=== PATIENT | male | born 1955 | race Caucasian/White ===

== ENCOUNTER 2017-11-23 10:54 | Emergency (ER) | payer BC ==
[2017-11-23 11:36] LABS: ABSOLUTE BASOPHILS # (AUTO) 0.1 10^3/uL (0.0-0.2); ABSOLUTE EOSINOPHILS # (AUTO) 0.4 10^3/uL (0.0-0.6); ABSOLUTE LYMPHOCYTES (AUTO) 1.7 10^3/uL (0.5-4.7); ABSOLUTE MONOCYTES (AUTO) 0.8 10^3/uL (0.1-1.4); ABSOLUTE NEUT (AUTO) 2.9 10^3/uL (1.7-8.2); BASOPHILS % (AUTO) 0.9 % (0-2); EOSINOPHILS % (AUTO) 6.6 % (0-6); HEMATOCRIT 38.8 % (37.9-51.0); HEMOGLOBIN 13.6 g/dL (13.5-17.0); LYMPHOCYTES % (AUTO) 29.4 % (13-45); MEAN CORPUSCULAR HEMOGLOBIN 32.8 pg (27.0-33.4); MEAN CORPUSCULAR HGB CONC 34.9 g/dL (32.0-36.0); MEAN CORPUSCULAR VOLUME 94 fl (80-97); MONOCYTES % (AUTO) 13.3 % (3-13); PLATELET COUNT 252 10^3/uL (150-450); RED BLOOD COUNT 4.13 10^6/uL (4.35-5.55); RED CELL DISTRIBUTION WIDTH 13.1 % (11.5-14.0); SEGMENTED NEUTROPHILS % (AUTO) 49.8 % (42-78); TOTAL CELLS COUNTED % (AUTO) 100 %; WHITE BLOOD COUNT 5.8 10^3/uL (4.0-10.5)
[2017-11-23 11:50] LABS: ALANINE AMINOTRANSFERASE 37 U/L (21-72); ALBUMIN 4.7 g/dL (3.5-5.0); ALKALINE PHOSPHATASE 78 U/L (38-126); ANION GAP 13 (5-19); ASPARTATE AMINO TRANSFERASE 25 U/L (17-59); BILIRUBIN,DIRECT 0.3 mg/dL (0.0-0.4); BILIRUBIN,TOTAL 0.8 mg/dL (0.2-1.3); BLOOD UREA NITROGEN 18 mg/dL (7-20); CALCIUM 10.5 mg/dL (8.4-10.2); CARBON DIOXIDE 27 mmol/L (22-30); CHLORIDE 102 mmol/L (98-107); GLUCOSE 86 mg/dL (75-110); LIPASE 114.9 U/L (23-300); POTASSIUM 4.2 mmol/L (3.6-5.0); SODIUM 141.8 mmol/L (137-145); TOTAL PROTEIN 7.7 g/dL (6.3-8.2)
--- NOTE | 2017-11-23 12:36 | ER Document Report ---
ED GI/ - General Chief Complaint: Abdominal Pain Stated Complaint: ABDOMINAL PAIN Time Seen by Provider: 11/23/17 12:36 Mode of Arrival: Ambulatory Information source: Patient Notes: 62 yo male hyperlipedemia, HTN, COPD, ex smoker, vape nicotine (constant), heavy beer avg 7 12 ounce, 4 days a week, no drugs, with pressure/bloating in stomach since friday, worse on friday, gets worse during the day, causes SOB due pressure on diaphragm. Visiting from [facility]. [facility] and passing gas last night helped. Had FU EGD last week for Barretts Esoph, Hiatel hernia, needs surgery for the HH, but Barretts Esoph better due to high omeprazole 40mg bid, zantac 300mg bid. Only take 40mg once daily. Colonoscopy 2 months ago clear. BM' s firm recently. Appendectomy, INQ hernia repair. Chronic UTI for 5 years- seen in [facility]-none now, last 3 weeks ago- tx, . urine foul smelling at that time.. Staying in [facility] until Friday. No fever or chills. No scrotal, penile or perineal pain. Symptoms now are abdominal pressure and shortness of breath. TRAVEL OUTSIDE OF THE U[place]S. IN LAST 30 DAYS: No - Related Data Allergies/Adverse Reactions: No Known Allergies Allergy (Unverified 11/23/17 10:55) Past Medical History - General Information source: Patient - Social History Smoking Status: Former Smoker Chew tobacco use (# tins/day): No Frequency of alcohol use: None Drug Abuse: None Lives with: Spouse/Significant other Family History: Reviewed & Not Pertinent Patient has suicidal ideation: No Patient has homicidal ideation: No - Past Medical History Cardiac Medical History: Reports: Hx Hypertension Pulmonary Medical History: Reports: Hx COPD Renal/ Medical History: Denies: Hx Peritoneal Dialysis GI Medical History: Reports: Hx Gastroesophageal Reflux Disease - ruff's esophagus, Hx Hiatal Hernia Past Surgical History: Reports: Hx Appendectomy, Hx Orthopedic Surgery - knee, wrist, back Review of Systems - Review of Systems Constitutional: No symptoms reported EENT: No symptoms reported Cardiovascular: No symptoms reported Respiratory: See HPI Gastrointestinal: See HPI Genitourinary: No symptoms reported Male Genitourinary: No symptoms reported Musculoskeletal: No symptoms reported Skin: No symptoms reported Hematologic/Lymphatic: No symptoms reported Neurological/Psychological: No symptoms reported Physical Exam - Vital signs Vitals: Temp Pulse Resp BP Pulse Ox 98.5 F 68 18 135/85 H 96 11/23/17 11:01 11/23/17 11:01 11/23/17 11:01 11/23/17 11:01 11/23/17 11:01 Interpretation: Normal - General General appearance: Appears well, Alert In distress: None - HEENT Head: Normocephalic, Atraumatic Eyes: Normal Conjunctiva: Normal Pupils: PERRL Pharynx: Normal Neck: Supple. No: Lymphadenopathy - Respiratory Respiratory status: No respiratory distress Chest status: Nontender Breath sounds: Normal Chest palpation: Normal - Cardiovascular Rhythm: Regular Heart sounds: Normal auscultation Murmur: No - Abdominal Inspection: Normal Distension: No distension Bowel sounds: Normal Tenderness: Nontender Organomegaly: No organomegaly - Back Back: Normal, Nontender - Extremities General upper extremity: Normal inspection, Nontender, Normal color, Normal ROM , Normal temperature General lower extremity: Normal inspection, Nontender, Normal color, Normal ROM , Normal temperature, Normal weight bearing. No: Michael's sign - Neurological Neuro grossly intact: Yes Cognition: Normal Orientation: AAOx4 [place] Coma Scale Eye Opening: Spontaneous Margot Coma Scale Verbal: Oriented Margot Coma Scale Motor: Obeys Commands [place] Coma Scale Total: 15 Speech: Normal Motor strength normal: LUE, RUE, LLE, RLE Sensory: Normal - Psychological Associated symptoms: Normal affect, Normal mood - Skin Skin Temperature: Warm Skin Moisture: Dry Skin Color: Normal Skin irregularity: negative: Rash Course - Re-evaluation Re-evalutation: 11/24/17 11:44 Feels much better after the nebulizer, AAS negative for obstuction. Will send home with bronchodilaters, suggestions for the intestinal gas. - Vital Signs Vital signs: Temp Pulse Resp BP Pulse Ox 97.5 F 69 16 128/87 H 97 11/23/17 16:06 11/23/17 16:06 11/23/17 16:06 11/23/17 16:06 11/23/17 16:06 - Laboratory Result Diagrams: 11/23/17 11:25 11/23/17 11:25 Laboratory results interpreted by me: 11/23/17 11/23/17 11/23/17 11:25 11:25 12:10 RBC 4.13 L Monocytes % 13.3 H Eosinophils % 6.6 H Calcium 10.5 H Ur Leukocyte Esterase TRACE H Discharge - Discharge Clinical Impression: Wheezing, intestinal gas, asymptomatic bacteruria COPD (chronic obstructive pulmonary disease) Qualifiers: COPD type: unspecified COPD Qualified Code(s): J44.9 - Chronic obstructive pulmonary disease, unspecified Condition: Good Disposition: HOME, SELF-CARE Instructions: Bronchitis With Bronchospasm (Wheezing) ([facility]), Chronic Obstructive Lung Disease ([facility]), Inhaled Bronchodilators ([facility]), Steroid Medication Additional Instructions: miralax will add water to your intestines which should increase peristalsis and help get the air out Beano gas x plenty of fluids use the inhalers for the wheezing steroids for 5 days total the urine culture is pending , if it shows UTI then we will call you to er if worsening symptoms while visiting to [place] Prescriptions: Albuterol Sulfate [Proair HFA Inhalation Aerosol 8.5 gm MDI] 2 puff IH Q3HP PRN #1 [email or web address] PRN Reason: Ipratropium/Albuterol Sulfate [Combivent Inhaler] 2 puff IH QID #1 [email or web address] Prednisone [Deltasone 20 mg Tablet] 40 mg PO DAILY #8 tablet
[2017-11-23 13:13] LABS: APPEARANCE,URINE CLEAR; BILIRUBIN,URINE NEGATIVE (NEGATIVE); COLOR,URINE YELLOW; GLUCOSE, URINE NEGATIVE (NEGATIVE); KETONES,URINE NEGATIVE (NEGATIVE); LEUKOCYTE ESTERASE,URINE TRACE (NEGATIVE); NITRITE,URINE NEGATIVE (NEGATIVE); PROTEIN,URINE NEGATIVE (NEGATIVE); URINE SPECIFIC GRAVITY 1.006; UROBILINOGEN,URINE NEGATIVE mg/dL (<2.0)
[2017-11-23] MEDS ORDERED: IPRATROPIUM/ALBUTEROL 0.5-2.5 MG/3 ML AMPUL NEB ONE (13:42)
--- NOTE | 2017-11-23 14:07 | RADIOLOGY REPORT (SQ) ---
EXAM DESCRIPTION: ACUTE ABDOMEN SERIES COMPLETED DATE/TIME: 11/23/2017 1:57 pm REASON FOR STUDY: distention, bloating COMPARISON: None. NUMBER OF VIEWS: Three views. TECHNIQUE: Frontal chest, supine abdomen and upright/decubitus abdomen radiographic images acquired. LIMITATIONS: None. FINDINGS: CHEST: Lungs clear of infiltrates. FREE AIR: None. No abnormal gas collections. BOWEL GAS PATTERN: Nonobstructive pattern. No dilated loops or air fluid levels. CALCIFICATIONS: No suspicious calcifications. HARDWARE: None in the abdomen. SOFT TISSUES: No gross mass or suggestion of organomegaly. BONES: No acute fracture. No worrisome bone lesions. OTHER: No other significant finding. IMPRESSION: NO RADIOGRAPHIC EVIDENCE FOR ACUTE ABDOMINAL DISEASE. TECHNICAL DOCUMENTATION: JOB ID: [id number] [employer]- All Rights Reserved
[2017-11-23] MEDS ORDERED: PREDNISONE 20 MG TABLET PO ONE (15:43)
[2017-11-23 16:07] VITALS: BP 128/87
== END 2017-11-23 16:07 | disposition home or self-care (01) ==
LOC: ER 10:54
DX: R06.2 Wheezing (principal); R14.3 Flatulence; R82.71 Bacteriuria; R10.9 Unspecified abdominal pain; J44.9 Chronic obstructive pulmonary disease, unspecified; I10 Essential (primary) hypertension
CPT/HCPCS: 94640; 99284; 36415; 87086; 83690; 85025; 87088; 80053; 81001; 87186; 74022; J7512; J7620

== ENCOUNTER 2018-07-18 04:16 | Observation (INO) | payer BC ==
[2018-07-18] MEDS ORDERED: NORMAL SALINE 1000 ML 1,000 ML IV ONE (04:22)
[2018-07-18] MEDS ORDERED: METHYLPREDNISOLONE INJ 125 MG/2 ML SDV IV ONE (04:24)
[2018-07-18] MEDS ORDERED: IPRATROPIUM/ALBUTEROL 0.5-2.5 MG/3 ML AMPUL NEB ONE ×2 (04:24→04:34)
--- NOTE | 2018-07-18 04:31 | ER Document Report ---
ED Respiratory Problem - General Mode of Arrival: Ambulatory Information source: Patient TRAVEL OUTSIDE OF THE U.S. IN LAST 30 DAYS: No <TAVO TRINIDAD - Last Filed: 07/18/18 04:49> <MANJEET BOCANEGRA - Last Filed: 07/18/18 06:08> - General Chief Complaint: Respiratory Distress Stated Complaint: SHORTNESS OF BREATH Time Seen by Provider: 07/18/18 04:21 Notes: 63-year-old male who presents to the emergency department today with complaints of 3 days of shortness of breath with an associated cough. Patient states that he was awoken from sleep tonight secondary to this shortness of breath. Patient has a history of COPD. Patient still smokes but now uses a "vape". Patient denies fevers, pain, or history of coronary artery disease. (TAVO TRINIDAD) - Related Data Allergies/Adverse Reactions: No Known Allergies Allergy (Unverified 11/23/17 10:55) Past Medical History - General Information source: Patient - Social History Smoking Status: Current Every Day Smoker Cigarette use (# per day): No - vape Frequency of alcohol use: None Drug Abuse: None Lives with: Family Family History: Reviewed & Not Pertinent - Past Medical History Cardiac Medical History: Reports: Hx Hypertension Pulmonary Medical History: Reports: Hx COPD Renal/ Medical History: Denies: Hx Peritoneal Dialysis GI Medical History: Reports: Hx Gastroesophageal Reflux Disease - ruff's esophagus, Hx Hiatal Hernia Past Surgical History: Reports: Hx Appendectomy, Hx Orthopedic Surgery - knee, wrist, back <TAVO TRINIDAD - Last Filed: 07/18/18 04:49> Review of Systems - Review of Systems Constitutional: denies: Fever EENT: No symptoms reported Cardiovascular: No symptoms reported Respiratory: See HPI, Cough, Short of breath Gastrointestinal: No symptoms reported Genitourinary: No symptoms reported Male Genitourinary: No symptoms reported Musculoskeletal: No symptoms reported Skin: No symptoms reported Hematologic/Lymphatic: No symptoms reported Neurological/Psychological: No symptoms reported -: Yes All other systems reviewed and negative <TAVO TRINIDAD - Last Filed: 07/18/18 04:49> Physical Exam - Vital signs Interpretation: Tachycardic, Hypoxic, Tachypneic - General General appearance: Alert In distress: Moderate - HEENT Head: Normocephalic, Atraumatic Eyes: Normal Pupils: PERRL - Respiratory Respiratory status: Respiratory distress Chest status: Nontender Breath sounds: Decreased air movement, Wheezing Chest palpation: Normal - Cardiovascular Rhythm: Regular Heart sounds: Normal auscultation Murmur: No - Abdominal Inspection: Normal Distension: No distension Bowel sounds: Normal Tenderness: Nontender Organomegaly: No organomegaly - Back Back: Normal, Nontender - Extremities General upper extremity: Normal inspection, Nontender, Normal color, Normal ROM , Normal temperature General lower extremity: Normal inspection, Nontender, Normal color, Normal ROM , Normal temperature, Normal weight bearing. No: Michael's sign - Neurological Neuro grossly intact: Yes Cognition: Normal Orientation: AAOx4 [place] Coma Scale Eye Opening: Spontaneous [place] Coma Scale Verbal: Oriented [place] Coma Scale Motor: Obeys Commands [place] Coma Scale Total: 15 Speech: Normal Motor strength normal: LUE, RUE, LLE, RLE Sensory: Normal - Psychological Associated symptoms: Normal affect, Normal mood - Skin Skin Temperature: Warm Skin Moisture: Dry Skin Color: Normal <MANJEET BOCANEGRA - Last Filed: 07/18/18 06:08> - Vital signs Vitals: Pulse Resp BP Pulse Ox 102 H 24 H 158/75 H 87 L 07/18/18 04:20 07/18/18 04:20 07/18/18 04:20 07/18/18 04:20 Course <TAVO TRINIDAD - Last Filed: 07/18/18 04:49> - Laboratory Result Diagrams: 07/18/18 04:55 07/18/18 04:55 - Diagnostic Test Radiology reviewed: Reports reviewed - EKG Interpretation by Ut EKG shows normal: Sinus rhythm <MANJEET BOCANEGRA - Last Filed: 07/18/18 06:08> - Re-evaluation Re-evalutation: 07/18/18 05:09 Patient respiratory status improving with BiPAP and breathing treatments. 07/18/18 06:06 Patient is a 63-year-old male with a history of COPD who has had difficulty breathing over the last 3 days. Patient came in in moderate respiratory distress. He is given nebulizer treatments, Solu-Medrol, magnesium, and placed on BiPAP. His respiratory status is improved and he is resting comfortably on BiPAP. Unfortunately, the patient is still wheezing. Given his hypoxia and acidosis on blood gas, patient will be referred for hospitalist admission. No evidence for pneumonia on x-ray. Patient is agreeable to this plan. Stable at the time of admission. (MANJEET BOCANEGRA) - Vital Signs Vital signs: Temp Pulse Resp BP Pulse Ox 102 H 20 138/84 H 96 07/18/18 04:20 07/18/18 05:01 07/18/18 05:01 07/18/18 05:01 - Laboratory Laboratory results interpreted by me: 07/18/18 07/18/18 04:55 04:55 VBG pH 7.27 L Carbon Dioxide 20 L Critical Care Note - Critical Care Note Total time excluding time spent on procedures (mins): 45 - Evaluation and management of respiratory distress, hypoxia, multiple re-evaluations, coordination of admission, counseling of patient <MANJEET BOCANEGRA - Last Filed: 07/18/18 06:08> Discharge <TAVO TRINIDAD - Last Filed: 07/18/18 04:49> - Discharge Admitting Provider: [facility] Admitted: Telemetry <MANJEET BOCANEGRA - Last Filed: 07/18/18 06:08> - Discharge Clinical Impression: COPD exacerbation Condition: Stable Disposition: ADMITTED OBSERVATION Scribe Attestation: 07/18/18 06:08 I personally performed the services described in the documentation, reviewed and edited the documentation which was dictated to the scribe in my presence, and it accurately records my words and actions. (MANJEET BOCANEGRA) Scribe Documentation - Scribe Written by Marino:: Marino Rendon, 07/18/2018 [id number] acting as scribe for :: Jerome <TAVO TRINIDAD - Last Filed: 07/18/18 04:49>
[2018-07-18] MEDS: MAGNESIUM SULFATE/D5W 1 GM/100 ML RTUPB IV SCH ×2 (04:48→06:12)
[2018-07-18 05:14] LABS: ABSOLUTE EOSINOPHILS # (AUTO) 0.3 10^3/uL (0.0-0.6); ABSOLUTE LYMPHOCYTES (AUTO) 1.2 10^3/uL (0.5-4.7); ABSOLUTE MONOCYTES (AUTO) 0.5 10^3/uL (0.1-1.4); ABSOLUTE NEUT (AUTO) 4.4 10^3/uL (1.7-8.2); BASOPHILS % (AUTO) 0.5 % (0-2); EOSINOPHILS % (AUTO) 3.9 % (0-6); HEMATOCRIT 41.1 % (37.9-51.0); HEMOGLOBIN 13.9 g/dL (13.5-17.0); LYMPHOCYTES % (AUTO) 19.2 % (13-45); MEAN CORPUSCULAR HEMOGLOBIN 31.7 pg (27.0-33.4); MEAN CORPUSCULAR HGB CONC 33.8 g/dL (32.0-36.0); MEAN CORPUSCULAR VOLUME 94 fl (80-97); MONOCYTES % (AUTO) 8.2 % (3-13); PLATELET COUNT 270 10^3/uL (150-450); RED BLOOD COUNT 4.38 10^6/uL (4.35-5.55); RED CELL DISTRIBUTION WIDTH 13.7 % (11.5-14.0); SEGMENTED NEUTROPHILS % (AUTO) 68.2 % (42-78); TOTAL CELLS COUNTED % (AUTO) 100 %; WHITE BLOOD COUNT 6.5 10^3/uL (4.0-10.5)
[2018-07-18 05:16] LABS: VENOUS BLOOD BASE EXCESS -2.4 mmol/L; VENOUS BLOOD HCO3 25.5 mmol/L (20-32); VENOUS BLOOD PCO2 56.4 mmHg (35-63); VENOUS BLOOD PH 7.27 (7.30-7.42)
[2018-07-18 05:21] LABS: INTERNATIONAL RATION (INR) 0.89; PROTHROMBIN TIME 12.5 SEC (11.4-15.4)
[2018-07-18 05:36] LABS: ALANINE AMINOTRANSFERASE 38 U/L (21-72); ALBUMIN 4.6 g/dL (3.5-5.0); ALKALINE PHOSPHATASE 83 U/L (38-126); ANION GAP 16 (5-19); ASPARTATE AMINO TRANSFERASE 28 U/L (17-59); BILIRUBIN,DIRECT 0.3 mg/dL (0.0-0.4); BILIRUBIN,TOTAL 0.4 mg/dL (0.2-1.3); BLOOD UREA NITROGEN 16 mg/dL (7-20); CARBON DIOXIDE 20 mmol/L (22-30); CHLORIDE 105 mmol/L (98-107); GLUCOSE 92 mg/dL (75-110); POTASSIUM 4.4 mmol/L (3.6-5.0); SODIUM 140.9 mmol/L (137-145); TOTAL PROTEIN 8.1 g/dL (6.3-8.2)
[2018-07-18 05:37] LABS: CALCIUM 9.6 mg/dL (8.4-10.2)
--- NOTE | 2018-07-18 05:58 | RADIOLOGY REPORT (SQ) ---
EXAM DESCRIPTION: XR CHEST 1 VIEW COMPLETED DATE/TME: 07/18/2018 04:22 CLINICAL HISTORY: 63 years Male, SOB COMPARISON: None. NUMBER OF VIEWS/TECHNIQUE: 1/AP FINDINGS: Increased lung volume, clear parenchyma, normal cardiac silhouette, and intact bony thorax. IMPRESSION: No acute cardiopulmonary findings.
[2018-07-18] MEDS ORDERED: DOXYCYCLINE HYCLATE INJ 100 MG VIAL IV ONE (06:06)
--- NOTE | 2018-07-18 07:18 | EKG REPORT ---
SEVERITY:- BORDERLINE ECG - SINUS RHYTHM NONSPECIFIC ST-T CHANGES LATERAL LEADS : Confirmed by: Juan A Barajas MD 18-Jul-2018 07:17:32
[2018-07-18 09:03] LABS: APPEARANCE,URINE CLEAR; BILIRUBIN,URINE NEGATIVE (NEGATIVE); COLOR,URINE STRAW; GLUCOSE, URINE NEGATIVE (NEGATIVE); KETONES,URINE NEGATIVE (NEGATIVE); LEUKOCYTE ESTERASE,URINE NEGATIVE (NEGATIVE); NITRITE,URINE NEGATIVE (NEGATIVE); PROTEIN,URINE NEGATIVE (NEGATIVE); URINE SPECIFIC GRAVITY 1.005; UROBILINOGEN,URINE NEGATIVE mg/dL (<2.0)
[2018-07-18] MEDS ORDERED: IPRATROPIUM/ALBUTEROL 0.5-2.5 MG/3 ML AMPUL NEB PRN (10:31)
--- NOTE | 2018-07-18 10:44 | PDOC H&P ---
History of Present Illness Admission Date/PCP: 07/18/18 05:56 No PCP in the area Patient complains of: Shortness of breath History of Present Illness: SUNI VOGT is a 63 year old male with no significant past medical history except for COPD, who presented to the ED early this morning complaining of shortness of breath. Patient states that he woke up out of bed to go to the bathroom and felt short of breath while he was walking to the bathroom. Patient states that he has a history of COPD and this was worsened this morning. Patient states that yesterday he was helping his grandson build some shelving and was around a lot of dust and wood material that was in the air. Patient states that at home he only takes pro-air and Spiriva for his COPD. 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 States that he did his job for many years which might have caused his lungs to be bad. States that in the past he also did smoke but has not in many years now. States that his COPD is well under control and normally he does not get exacerbation but believes that he has today due to the use of using wooden cutting which caused his shortness of breath. He came to the ED and received 1 treatment and steroid and felt well afterwards. He is originally from [place] and he is visiting his grandson here for the last week and a half. He was planning on leaving this area tomorrow. He is requesting discharge at this time since he is feeling well and denies any chest pain, shortness of breath, fever/chills, headaches, dizziness, lightness, nausea or vomiting. He tells me that he feels fine and he can continue to use his Pro Air if he is discharged. Past Medical History Cardiac Medical History: Reports: Hypertension Pulmonary Medical History: Reports: Chronic Obstructive Pulmonary Disease (COPD) GI Medical History: Reports: Gastroesophageal Reflux Disease - ruff's esophagus, Hiatal Hernia Past Surgical History Past Surgical History: Reports: Appendectomy, Orthopedic Surgery - knee, wrist, back Social History Lives with: Family Smoking Status: Former Smoker - Advance Directive Resuscitation Status: Full Code Family History Family History: Reviewed & Not Pertinent Parental Family History Reviewed: Yes Children Family History Reviewed: Unknown Sibling(s) Family History Reviewed.: Unknown Medication/Allergy Allergies/Adverse Reactions: No Known Allergies Allergy (Unverified 11/23/17 10:55) Review of Systems All systems: reviewed and no additional remarkable complaints except as stated Constitutional: ABSENT: chills, fever(s) Cardiovascular: ABSENT: chest pain, orthropnea, palpitations Respiratory: ABSENT: cough Gastrointestinal: ABSENT: abdominal pain, vomiting Genitourinary: ABSENT: dysuria Neurological: ABSENT: abnormal gait, focal weakness Endocrine: ABSENT: polyphagia Physical Exam Vital Signs: Temp Pulse Resp BP Pulse Ox 102 H 12 125/79 92 07/18/18 04:20 07/18/18 07:01 07/18/18 07:01 07/18/18 08:18 Intake & Output 07/17/18 07/18/18 07/19/18 06:59 06:59 06:59 Intake Total 100 Balance 100 General appearance: PRESENT: no acute distress, well-developed, well-nourished. ABSENT: mild distress Head exam: PRESENT: atraumatic, normocephalic Eye exam: PRESENT: EOMI, PERRLA. ABSENT: scleral icterus Ear exam: PRESENT: normal external ear exam Neck exam: ABSENT: tracheal deviation Respiratory exam: PRESENT: decreased breath sounds - Bilaterally and mostly at the bases with some expiratory wheezing, symmetrical Pulses: PRESENT: +2 pedal pulses bilateral GI/Abdominal exam: PRESENT: normal bowel sounds, soft. ABSENT: tenderness Extremities exam: ABSENT: joint swelling, pedal edema, +1 edema, +2 edema Musculoskeletal exam: PRESENT: full ROM. ABSENT: tenderness Neurological exam: PRESENT: alert, awake, oriented to person, oriented to place , oriented to time, oriented to situation, CN II-XII grossly intact Skin exam: PRESENT: dry, warm Results Laboratory Results: 07/18/18 08:25 Urine Color STRAW Urine Appearance CLEAR Urine pH 5.0 Ur Specific [place] 1.005 Urine Protein NEGATIVE Urine Glucose (UA) NEGATIVE Urine Ketones NEGATIVE Urine Blood NEGATIVE Urine Nitrite NEGATIVE Ur Leukocyte Esterase NEGATIVE Urine WBC (Auto) 1 Urine RBC (Auto) 0 Impressions: Chest X-Ray 07/18/18 04:22 IMPRESSION: No acute cardiopulmonary findings. Assessment & Plan - Diagnosis (1) Acute respiratory failure with hypoxia Is this a current diagnosis for this admission?: Yes Plan: Likely secondary to his COPD exacerbation. Fortunately he is not a bad COPD individual. I think his COPD was exacerbated by his work with wood and cutting with his grandson to build some shelves yesterday. He received Solu-Medrol 125 mg IV and DuoNeb treatment in the ED and improved dramatically. He was placed in observation status by the overnight physician who had not yet evaluated the patient because it was during shift change time around 6:45 in the morning. I went to evaluate him this morning and he was on room air and satting greater than 92%. 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 I discussed about the fact that he is still wheezing a little bit and that this was likely secondary to his event yesterday of building shelves and working with wood. He agrees with me and states that he feels great and would like to go home today. I told him that he can get another treatment of nebulizer now and see how he feels. He agrees. I discussed about may be continue with some steroid, 60 mg prednisone, for 5 days burst course and he agrees. He does have a history of smoking but no longer does. He is from [place] and planning to leave the [facility] tomorrow morning and hence requesting discharge at this time. He does use pro-air and Spiriva at home. I discussed about maintenance use of inhaler such as Symbicort and Advair and he will speak to his family physician when he goes back home. (2) COPD exacerbation Is this a current diagnosis for this admission?: Yes Plan: See plan above (3) Hypertension Is this a current diagnosis for this admission?: Yes - Time Time Spent: 50 to 70 Minutes - Plan Summary Plan Summary: Placed in observation-his respiratory failure has resolved as he is on room air satting greater than 92%. I am not sure if he requires admission at this time. He might have had an acute exacerbation state which has improved with the steroid and neb treatment in the ED. I may discharge him later today if he continues to improve
[2018-07-18] MEDS ORDERED: TIOTROPIUM BROMIDE DPI 5 CAP/KIT (18 MCG/CAP) IH SCH (15:00)
[2018-07-18 16:18] VITALS: BP 152/83
--- NOTE | 2018-07-18 16:26 | PDOC DISCHARGE SUMMARY ---
General - Admit/Disc Date/PCP Admission Date/Primary Care Provider: 07/18/18 05:56 out of state Discharge Date: 07/18/18 - seen this afternoon again - Discharge Diagnosis (1) Acute respiratory failure with hypoxia Is this a current diagnosis for this admission?: Yes (2) COPD exacerbation Is this a current diagnosis for this admission?: Yes (3) Hypertension Is this a current diagnosis for this admission?: Yes - Additional Information Resuscitation Status: Full Code Discharge Activity: Activity As Tolerated Prescriptions: Prednisone [Deltasone 20 mg Tablet] 60 mg PO DAILY #4 tablet Home Medications: Albuterol Sulfate [Proair HFA Inhalation Aerosol 8.5 gm MDI] 2 puff IH Q6HP PRN 07/18/18 Atorvastatin Calcium [Lipitor 20 mg Tablet] 20 mg PO DAILY 07/18/18 Hydrocodone/Acetaminophen [Hydrocodone-Acetamin 7.5-325] 1 tab PO Q6HP PRN 07/18 Omeprazole 40 mg PO DAILY 07/18/18 Prednisone [Deltasone 20 mg Tablet] 60 mg PO DAILY #4 tablet 07/18/18 Ranitidine HCl [Zantac 150 mg Tablet] 300 mg PO DAILY 07/18/18 Tadalafil [Cialis] 5 mg PO DAILY 07/18/18 Tiotropium [place] [Spiriva Handihaler 5 Cap/Kit (18 Mcg/Cap)] 1 cap IH DAILY kit 07/18/18 Tiotropium [place] [Spiriva Handihaler 5 Cap/Kit (18 Mcg/Cap)] 1 puff IH DAILY 07/18/18 History of Present Illness History of Present Illness: SUNI VOGT is a 63 year old male with no significant past medical history except for COPD, who presented to the ED early this morning complaining of shortness of breath. Patient states that he woke up out of bed to go to the bathroom and felt short of breath while he was walking to the bathroom. Patient states that he has a history of COPD and this was worsened this morning. Patient states that yesterday he was helping his grandson build some shelving and was around a lot of dust and wood material that was in the air. Patient states that at home he only takes pro-air and Spiriva for his COPD. 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 States that he did his job for many years which might have caused his lungs to be bad. States that in the past he also did smoke but has not in many years now. States that his COPD is well under control and normally he does not get exacerbation but believes that he has today due to the use of using wooden cutting which caused his shortness of breath. He came to the ED and received 1 treatment and steroid and felt well afterwards. He is originally from [place] and he is visiting his grandson here for the last week and a half. He was planning on leaving this area tomorrow. He is requesting discharge at this time since he is feeling well and denies any chest pain, shortness of breath, fever/chills, headaches, dizziness, lightness, nausea or vomiting. He tells me that he feels fine and he can continue to use his Pro Air if he is discharged. Hospital Course Hospital Course: his symptoms improved very quickly since admission. he was on room air and SaO2 >92%. he was walking the hallways without any distress. i have him advice as stated below follow up with your PCP within 1 week of returning home start taking prednisone 60mg daily 4 more days starting tomorrow continue your home inhalers- take to your PCP about combivent inhaler that you were prescribed but not using. talk to your pcp about PFT testing once you are back home and back to baseline health for the next 2-3 days- use your proAIR inhaler twice daily as directed he verbalized understanding of these instructions. Physical Exam Vital Signs: Temp Pulse Resp BP Pulse Ox 97.9 F 73 17 152/83 H 98 07/18/18 16:02 07/18/18 16:02 07/18/18 16:02 07/18/18 16:02 07/18/18 16:02 Intake & Output 07/17/18 07/18/18 07/19/18 06:59 06:59 06:59 Intake Total 100 Balance 100 General appearance: PRESENT: no acute distress, well-developed, well-nourished Head exam: PRESENT: atraumatic, normocephalic Eye exam: PRESENT: EOMI, PERRLA. ABSENT: scleral icterus Ear exam: PRESENT: normal external ear exam Mouth exam: PRESENT: neck supple, tongue midline Neck exam: ABSENT: tracheal deviation Respiratory exam: PRESENT: decreased breath sounds - slightly decreased at the bases but no wheezing/rhonchi, symmetrical Cardiovascular exam: PRESENT: +S1, +S2 Pulses: PRESENT: +2 pedal pulses bilateral GI/Abdominal exam: PRESENT: normal bowel sounds, soft. ABSENT: tenderness Neurological exam: PRESENT: alert, awake, oriented to person, oriented to place , oriented to time, oriented to situation, CN II-XII grossly intact Skin exam: PRESENT: dry, warm Results Laboratory Results: 07/18/18 08:25 Urine Color STRAW Urine Appearance CLEAR Urine pH 5.0 Ur Specific [place] 1.005 Urine Protein NEGATIVE Urine Glucose (UA) NEGATIVE Urine Ketones NEGATIVE Urine Blood NEGATIVE Urine Nitrite NEGATIVE Ur Leukocyte Esterase NEGATIVE Urine WBC (Auto) 1 Urine RBC (Auto) 0 Impressions: Chest X-Ray 07/18/18 04:22 IMPRESSION: No acute cardiopulmonary findings. Qualifiers - * PATIENT BEING DISCHARGED WITH ANY OF THE FOLLOWING DIAGNOSIS: No VTE patient discharged on overlapping Therapy?: No Plan Time Spent: Less than 30 Minutes - same day discharge
[2018-07-19] MEDS ORDERED: PREDNISONE 20 MG TABLET PO SCH (10:00)
== END 2018-07-18 16:51 | disposition home or self-care (01) ==
LOC: ER 04:16 → EH 05:56 → 5 08:14
PROVIDERS: ADMIT Internal Medicine; ATTEND Internal Medicine
DX: J96.01 Acute respiratory failure with hypoxia (principal); J44.1 Chronic obstructive pulmonary disease with (acute) exacerbation; I10 Essential (primary) hypertension; F17.290 Nicotine dependence, other tobacco product, uncomplicated; Z79.899 Other long term (current) drug therapy; Z90.49 Acquired absence of other specified parts of digestive tract
CPT/HCPCS: 93005; 94640 ×2; 99291; 96375; 96365; 96366; 96368; 36415; 87040; 87086; 82962; 85025; 85610; 87088; 80053; 81001; 87186; 82803; 83605; 83880; 71045; 93010; 94660; G0378; J3490 ×2; J2930; J3475; J7030; J7620